=== PATIENT | male | born 1960 | race Caucasian/White ===

== ENCOUNTER 2016-12-10 23:55 | Emergency (ER) | payer MEDICARE, OTHER ==
[~2016-12-10 23:55] MED LIST: ADVAIR; ADVIL100 MG PO; ALBUTEROL MININEB NEB; ALBUTEROL0.83 MG/ML INH; ALBUTEROL17 GM INH; ALLERGY MED; ALLERGY MEDICINE; AMOXICILLIN875 MG PO; ANEXSIA 7.5/3251 TA1 PO; ANTIDEPRESSANT; BLOOD PRESSURE MED; BROMFED DM PO; CELEXA PO; CHANTIX1 MG PO; CIPRO PO; CYMBALTA30 MG PO; DELTASONE20 MG PO; DICLOFENAC PO; DOXYCYCLINE HY100 M1 PO; FIRST-OMEPR2 MG/1 ML; FLEXERIL PO; FLEXERIL10 MG PO; FLOMAX0.4 M1 PO; FLONASE 0.05% N16 G1; FLONASE ALLERG9.9 ML; FLONASE16 GM; HYDROCODON-ACE1 EAC9 PO; HYDROCODONE/APA1 T16; IBUPROFEN PO; IBUPROFEN800 MG PO; MOTRIN50 MG PO; MUSCLE RELAXER; NAMENDA10 MG; NASAL SPRAY; NASONEX17 GM; NEBULIZER1 KI1; NO MEDICATIONS; NORCO 10-325 TA1 TAB PO; OMEPRAZOLE20 M2 PO; PHENERGAN/CODEIN5 ML PO; PHENERGAN25 MG PO; PREDNISONE PO; PREDNISONE10 MG/DOSE PO; PRILOSEC PO; PRILOSEC20 MG PO; PROAIR HFA8.5 GM; PROAIR HFA8.5 GM IH; QVAR7.3 GM INH; ROBITUSSIN A-C S5 ML PO; SPIRIVA18 MCG; SPIRIVA18 MCG IH; SPIRIVA18 MCG INH; SPIRIVA18 MCG PO; SYMBICORT 160/4.6 GM INH; SYMBICORT INH; TRAZODONE PO; ULTRAM PO; VIBRAMYCIN100 M1 PO; VOLTAREN75 MG PO; ZITHROMAX PO; ZOFRANODT SL; ZYRTEC PO; ZYRTEC10 M1 PO; ZYRTEC10 M2 PO; [UNRECOGNIZED DRUG - REMARK]; [UNRECOGNIZED DRUG - REMARK]; [UNRECOGNIZED DRUG - REMARK]
== END 2016-12-11 00:26 | disposition home or self-care (01) ==
LOC: SED 23:55
DX: S30.860A Insect bite (nonvenomous) of lower back and pelvis, initial encounter (principal); L03.312 Cellulitis of back [any part except buttock and flank]; F17.210 Nicotine dependence, cigarettes, uncomplicated; W57.XXXA Bitten or stung by nonvenomous insect and other nonvenomous arthropods, initial encounter
CPT/HCPCS: 99282

== ENCOUNTER → 2017-01-25 | Outpatient (CLI) | payer MEDICARE, OTHER ==
--- NOTE | ~2017-01-25 | CT2 ---
[facility] A Service of [facility] RADIOLOGY TEXT RESULTS PATIENT: INGRIS AVILA LOCATION: [facility] : 64 UNIT #: [id number] AGE: [address]: Tony Whiting MD SEX: M ORDER DR: [id number] [facility] [address] [place], [place] [address] [id number] O MR#: [id number] [facility] #: [id number] NAME: INGRIS AVILA. : 1960 SEX: M STUDY DATE/TIME: 01/25/2017 14:18 UNIT: [facility] ROOM: STUDY DESCRIPTION: CT Abd and Pelv W Cont Attending Physician: Tony Whiting Jr., M.D. Referring Physician: Tony Whiting Jr., M.D. Ordering Physician: Tony Whiting Jr., M.D. Primary Care Physician: Pineda Dillard M.D. MEDICAL IMAGING REPORT This report is preliminary unless electronic signature is present EXAM CT of the abdomen and pelvis with contrast. INDICATIONS Right lower quadrant pain around a hernia repair; this hernia repair was performed in 2014. Patient also reports some right testicular pain. TECHNIQUE Axial CT images were obtained from the dome of the diaphragm through the symphysis pubis following the administration of oral and intravenous contrast material. This CT exam was performed with one or more of the following radiation dose reduction techniques: Automatic exposure control, adjustment of mA and/or kV according to patient size, and iterative reconstruction. FINDINGS Images through the lung bases demonstrate some background emphysematous changes. There is also some scarring noted at the right lung base. Prior study demonstrated a nodule within the right lower lobe which cannot be seen on the current study, as the images do not extend that far cranially. Stomach and proximal small bowel are within normal limits, as are the adrenal glands. Pancreas also appears normal, as is the spleen. Liver appears unremarkable. Gallbladder is surgically absent. No free fluid or adenopathy is seen within the abdomen. There is a small, fat-containing umbilical hernia. The appendix is visualized and is within normal limits. Prostate gland contains some dystrophic calcifications. Urinary bladder appears normal. There is no evidence of mechanical bowel obstruction. Postsurgical changes are seen within the right inguinal region; these appear intact, no associated fluid collection is seen. Review of bony windows does not demonstrate any aggressive osseous abnormalities. [facility] A Service of [facility] RADIOLOGY TEXT RESULTS PATIENT: INGRIS AVILA LOCATION: [facility] : 64 UNIT #: [id number] AGE: [address]: Tony Whiting MD SEX: M ORDER DR: Patient is noted to have multiple nonobstructing renal stones. These were also identified on the prior examination. No distal ureteral or bladder stones are seen. IMPRESSION 1. Postsurgical changes are seen within the right inguinal region. I do not see any evidence of failure or complication. 2. On the prior two CTs, patient was noted to have a 5-mm nodule within the right lower lobe. This cannot be seen on today's examination, as the images do not extend that far cranially. As the patient has background emphysematous changes, I would suggest continued CT follow up of this nodule. 3. Bilateral nonobstructing renal stones. 4. Changes of prior cholecystectomy. 5. Please see the body of the report for any other additional incidental findings. Dictated by... Trista Velásquez M.D. THIS IS AN ELECTRONICALLY VERIFIED REPORT Trista Velásquez M.D. at 01/28/2017 4:51 PM AFF/psc TD: 01/27/2017 18:52 JOB #: [id number] MEDICAL IMAGING REPORT Page 1 of 1 COPY
== END | disposition home or self-care (01) ==
LOC: CCAT 12:41
DX: K40.90 Unilateral inguinal hernia, without obstruction or gangrene, not specified as recurrent (principal); N20.0 Calculus of kidney; R52 Pain, unspecified; L90.5 Scar conditions and fibrosis of skin; R91.1 Solitary pulmonary nodule; Z90.49 Acquired absence of other specified parts of digestive tract
CPT/HCPCS: 74177; Q9967

== ENCOUNTER 2017-02-12 23:26 | Emergency (ER) | payer OTHER | END 2017-02-13 01:26 | disposition home or self-care (01) | LOC: SED 23:26 | DX: J44.1 Chronic obstructive pulmonary disease with (acute) exacerbation (principal); K21.9 Gastro-esophageal reflux disease without esophagitis; Z90.49 Acquired absence of other specified parts of digestive tract; Z98.890 Other specified postprocedural states; F17.210 Nicotine dependence, cigarettes, uncomplicated; Z79.899 Other long term (current) drug therapy | CPT/HCPCS: 94640; 99283 ==